=== PATIENT | male | born 1960 | race Caucasian/White ===

== ENCOUNTER 2017-05-11 08:34 | Inpatient (IN) | payer OTHER ==
[~2017-05-11] VITALS: Ht 175.3 cm; Wt 97.8 kg
[2017-05-11] VITALS (8 sets, daily range): BP systolic 98–115; BP diastolic 55–70
[~2017-05-11 08:34] MED LIST: CELEBREX200 MG PO; ICAPS LUTEIN PO; INSULIN PUMP MC; LANTUS 3 M100 UNITS/ SC; LIPITOR20 MG PO; Omega III EPA + DHA PO; THERAGRAN1 TABLET PO; Vicodin,Lortab 5/500 PO; [UNRECOGNIZED DRUG - OTHER] PO
[2017-05-11 09:20] LABS: HEMOGLOBIN 11.2 G/DL (12.5-16.6); MCH 28.1 PG (29.0-34.0); MCHC 32.9 G/DL (30.0-36.0); MCV 85.4 FL (86-99); PLATELET COUNT 243 K/uL (156-360); RBC DIS.WIDTH-CV 13.2 % (11.8-14.6); RED BLOOD COUNT 3.98 M/uL (4.00-5.50); WHITE BLOOD COUNT 18.1 K/uL (4.1-10.2)
[2017-05-11 09:26] LABS: CARBON DIOXIDE (BICARBONATE) 15.9 MEQ/L (20-31)
[2017-05-11 09:31] LABS: CHLORIDE 89 mEq/L (99-109); POTASSIUM 4.4 mEq/L (3.7-5.4)
[2017-05-11 09:32] LABS: SODIUM 124 mEq/L (136-147)
[2017-05-11 09:34] LABS: GLUCOSE 696 mg/dL (70-99)
[2017-05-11 09:37] LABS: CREATININE 2.3 mg/dL (0.6-1.3); GFR ESTIMATE (CALCULATED) 31 mL/min/ (58.99-99999)
[2017-05-11 09:38] LABS: UREA NITROGEN (BUN) 46 mg/dL (9-23)
[2017-05-11] MEDS ORDERED: FISH OIL 1,2001 EAC4 PO (10:40)
[2017-05-11] MEDS ORDERED: CINNAMON500 MG PO (10:40)
[2017-05-11] MEDS ORDERED: CYANOCOBALAM1000 MCG PO (10:41)
[2017-05-11] MEDS ORDERED: MULTI VITAMIN1 EACH PO (10:41)
[2017-05-11 10:50] LABS: APPEARANCE CLEAR ((CLEAR)); BILIRUBIN NEGATIVE; BLOOD NEGATIVE; COLOR YELLOW ((YELLOW)); GLUCOSE (STRIP) >=500; KETONES 20; LEUKOCYTES NEGATIVE; NITRITE NEGATIVE; PROTEIN (STRIP) NEGATIVE; SPECIFIC GRAVITY 1.012 (1.000-1.030); UCUL ADDED? NO; UROBILINOGEN 0.2 MG/DL (0.2-1.0)
[2017-05-11 11:53] LABS: CHLORIDE 97 mEq/L (99-109); SODIUM 126 mEq/L (136-147)
[2017-05-11 11:59] LABS: CREATININE 1.9 mg/dL (0.6-1.3); GFR ESTIMATE (CALCULATED) 39 mL/min/ (58.99-99999)
[2017-05-11 12:00] LABS: UREA NITROGEN (BUN) 44 mg/dL (9-23)
[2017-05-11 12:02] LABS: GLUCOSE 526 mg/dL (70-99)
[2017-05-11 13:42] LABS: HEMOGLOBIN A1c (GLYCOHEMOGLOB) 8.5 % (Below 5.7)
[2017-05-11 16:08] LABS: CHLORIDE 100 mEq/L (99-109); POTASSIUM 3.9 mEq/L (3.7-5.4); SODIUM 128 mEq/L (136-147)
[2017-05-11 16:10] LABS: GLUCOSE 380 mg/dL (70-99)
[2017-05-11 16:14] LABS: CREATININE 1.7 mg/dL (0.6-1.3); GFR ESTIMATE (CALCULATED) 45 mL/min/ (58.99-99999); PHOSPHORUS 3.4 mg/dL (2.5-4.9)
[2017-05-11 16:15] LABS: UREA NITROGEN (BUN) 42 mg/dL (9-23)
[2017-05-11 20:20] LABS: CHLORIDE 101 MEQ/L (99-109); CREATININE 1.4 MG/DL (0.6-1.3); GFR ESTIMATE (CALCULATED) 56 mL/min/ (58.99-99999); PHOSPHORUS 3.2 mg/dL (2.5-4.9); POTASSIUM 3.6 MEQ/L (3.7-5.4); SODIUM 132 MEQ/L (136-147); UREA NITROGEN (BUN) 41 mg/dL (9-23)
[2017-05-11 20:21] LABS: GLUCOSE 164 mg/dL (70-99)
[2017-05-12] VITALS (16 sets, daily range): BP systolic 93–153; BP diastolic 41–101
[2017-05-12 01:12] LABS: CHLORIDE 105 mEq/L (99-109)
[2017-05-12 01:13] LABS: POTASSIUM 3.7 mEq/L (3.7-5.4); SODIUM 134 mEq/L (136-147)
[2017-05-12 01:14] LABS: GLUCOSE 134 mg/dL (70-99)
[2017-05-12 01:18] LABS: CREATININE 1.3 mg/dL (0.6-1.3); GFR ESTIMATE (CALCULATED) > 59 mL/min/ (58.99-99999); PHOSPHORUS 2.9 mg/dL (2.5-4.9)
[2017-05-12 01:19] LABS: UREA NITROGEN (BUN) 39 mg/dL (9-23)
[2017-05-12 05:01] LABS: CHLORIDE 106 mEq/L (99-109); SODIUM 135 mEq/L (136-147)
[2017-05-12 05:03] LABS: GLUCOSE 173 mg/dL (70-99)
[2017-05-12 05:06] LABS: PHOSPHORUS 2.8 mg/dL (2.5-4.9)
[2017-05-12 05:07] LABS: CREATININE 1.3 mg/dL (0.6-1.3); GFR ESTIMATE (CALCULATED) > 59 mL/min/ (58.99-99999)
[2017-05-12 05:08] LABS: UREA NITROGEN (BUN) 35 mg/dL (9-23)
[2017-05-12 08:23] LABS: CHLORIDE 105 MEQ/L (99-109); SODIUM 136 MEQ/L (136-147)
[2017-05-12 08:28] LABS: CREATININE 1.2 MG/DL (0.6-1.3); GFR ESTIMATE (CALCULATED) > 59 mL/min/ (58.99-99999); GLUCOSE 230 mg/dL (70-99); PHOSPHORUS 2.8 mg/dL (2.5-4.9); UREA NITROGEN (BUN) 33 mg/dL (9-23)
[2017-05-12 11:52] LABS: HEMATOCRIT 33.6 % (38.0-50.0); HEMOGLOBIN 11.5 G/DL (12.5-16.6); MCHC 34.2 G/DL (30.0-36.0); MCV 81.8 FL (86-99); PLATELET COUNT 228 K/uL (156-360); RBC DIS.WIDTH-CV 13.7 % (11.8-14.6); RBC DIS.WIDTH-SD 40.3 % (39-53); RED BLOOD COUNT 4.11 M/uL (4.00-5.50); WHITE BLOOD COUNT 12.4 K/uL (4.1-10.2)
[2017-05-12 12:10] LABS: CHLORIDE 107 MEQ/L (99-109); POTASSIUM 4.2 MEQ/L (3.7-5.4); SODIUM 137 MEQ/L (136-147)
[2017-05-12 12:16] LABS: GFR ESTIMATE (CALCULATED) > 59 mL/min/ (58.99-99999); GLUCOSE 237 mg/dL (70-99); UREA NITROGEN (BUN) 29 mg/dL (9-23)
== END 2017-05-12 15:09 | disposition home or self-care (01) | DRG 638 ==
LOC: EME 08:34 → 4WEST 14:55 → EDOF 14:55 → 4WEST 14:55 → ENRESERV 14:58 → 4WEST 15:42
PROVIDERS: Emergency Medicine; Nurse Practitioner Family; Obstetrics & Gynecology; Specialist
DX: E11.10 Type 2 diabetes mellitus with ketoacidosis without coma (principal); N17.9 Acute kidney failure, unspecified; E83.51 Hypocalcemia; E78.5 Hyperlipidemia, unspecified; F41.9 Anxiety disorder, unspecified; E86.1 Hypovolemia; E66.9 Obesity, unspecified; E86.0 Dehydration; Z96.41 Presence of insulin pump (external) (internal); Z98.84 Bariatric surgery status; Z87.891 Personal history of nicotine dependence; Z79.4 Long term (current) use of insulin
CPT/HCPCS: 71045; 80048; 80048 91; 81003; 82010; 82803; 82948; 83036; 84100; 85027; 87641; 90686; 93306; 99281; 99285; J1815; J7030; J7050